=== PATIENT | female | born 1950 | race Caucasian/White ===

== ENCOUNTER 2016-11-29 13:47 | Inpatient (IN) | payer OTHER ==
--- NOTE | ~2016-11-29 | OR ---
Unit #: [id number] #: [id number] Patient: KOLTON ELIZABETH [id number] [address] [address] [id number] I MR#: [id number] NAME: KOLTON ELIZABETH ROOM: 462 Date of Procedure: 11/30/2016 Admission Date: 11/29/2016 Surgeon: Montez Interiano M.D. : 1950 Attending Physician: Chanel Dixon M.D. Primary Care Physician: Mark Flores M.D. OPERATIVE REPORT PRIMARY CARE PHYSICIAN Mark Flores M.D. PREOPERATIVE DIAGNOSIS The patient has presented with acute biliary pancreatitis. PROCEDURES PERFORMED Endoscopic retrograde cholangiopancreatography and biliary stent placement. Endoscopic retrograde cholangiopancreatography and pancreatic stent placement. POSTOPERATIVE DIAGNOSES The patient had papillary stenosis. Access to the bile duct was gained after needle-knife sphincterotomy and the common bile duct was swept with a retrieval balloon multiple times. Other than tight papillary stenosis, no other abnormalities were noted. The CBD was about 8 to 9 mm in size. A 10-Palestinian 7 cm biliary stent and a 5-Palestinian 5 cm pancreatic stents were deployed. RECOMMENDATIONS We will monitor the patient's LFTs and pancreatic enzyme levels over the next 24 hours. She should be able to go home in the next one or two days. SEDATION USED MAC. DESCRIPTION OF PROCEDURE Following detailed explanation of the potential risks and complications of an ERCP, namely perforation, bleeding, complication related to sedation, and pancreatitis, the patient was brought to GI lab and laid in the left semiprone position. Sedation using MAC was given. A preliminary upper GI endoscopy was performed, which was normal. A lateral viewing duodenoscope was then advanced through the oral cavity into the esophagus and advanced into the stomach. Pylorus was intubated in the usual fashion and the scope was advanced into the deep descending duodenum. The patient had a large hiatus hernia making intubation of the pylorus somewhat challenging. The major papilla and ampullary area was visualized en face and guidewire based cannulation was done. After first couple of attempts, only pancreatic duct could be cannulated. The wire in the pancreatic duct was then anchored and guidewire in the pancreatic duct was then anchored and using double wire technique, attempt was made to cannulate the common bile duct without much success. A pancreatic stent was then deployed followed Unit #: [id number] #: [id number] Patient: KOLTON ELIZABETH by needle-knife sphincterotomy. Access to the bile duct was thus gained of needle knife. The patient had significant papillary stenosis as evidenced by the appearances of distal common bile duct and scarring this area. A contrast cholangiogram was obtained that showed a long cystic duct remnant, but the intrahepatic biliary tree was normal. The common bile duct was dilated to about 8 mm. A 9 to 12 mm retrieval balloon was used and the duct was swept multiple times. No stones or debris were found. A 10-Palestinian 7 cm biliary stent was then deployed. Excellent biliary drainage was established. The scope and the accessories were then withdrawn. The patient returned to the recovery area. She tolerated the procedure without any postprocedure complications. Dictated by... William Virgen/yakov TD: 12/01/2016 03:26 JOB #: [id number] CC: Rubin Romeo M.D. . OPERATIVE REPORT Page 1 of 1 X Montez Interiano MD X PROCEDURE OPERATIVE NOTE
--- NOTE | ~2016-11-29 | HP ---
Unit #: [id number] #: [id number] Patient: KOLTON ELIZABETH [id number] [address] [place], [place] [address] [id number] I MR#: [id number] NAME: KOLTON ELIZABETH. ROOM: 53862 Age: 66 Sex: F Admission Date: 11/29/2016 : 1950 Attending Physician: Rubin Romeo M.D. Primary Care Physician: Mark Flores M.D. HISTORY AND PHYSICAL CHIEF COMPLAINT Abdominal pain. HISTORY OF PRESENT ILLNESS Patient is a pleasant 66-year-old female who presented with abdominal pain x1 day. The pain she described was reminiscent of when she had a gallbladder attack many years ago which she had a cholecystectomy for. She denied any fever. She described the abdominal pain as epigastric radiating to her back. She states it was 10 out of 10 and (1) was somewhat colicky. Denied any vomiting but did have some nausea, denied any diarrhea, melena, hematochezia, hemoptysis, or hematemesis, denied any calf pain or tenderness, denied any headaches or blurry vision, and denied any syncopal episodes. She presented to the emergency room for evaluation. In the emergency room, she had a CAT scan of her abdomen and pelvis which indicated acute pancreatitis. PAST MEDICAL HISTORY Pancreatitis in the past. PAST SURGICAL HISTORY 1. Appendectomy. 2. Cholecystectomy. 3. Hysterectomy. 4. Left knee replacement. MEDICATIONS Motrin [id number]. ALLERGIES PENICILLIN. FAMILY HISTORY Negative to the presenting complaints at this point. SOCIAL HISTORY Patient lives by herself. Patient denies any tobacco use, alcohol use, or illicit drug use. FAMILY HISTORY Noncontributory. PHYSICAL EXAMINATION GENERAL: She was comfortable and not in any acute distress. VITAL SIGNS: Blood pressure 113/76, pulse 118, respiratory rate 18, Unit #: [id number] #: [id number] Patient: KOLTON ELIZABETH temperature 98.1, and saturating 95% on room air. HEENT: Pupils were equal and reactive to light and accommodation. NECK: Supple without thyromegaly. No elevated JVD. CHEST: Reduced breath sounds at the lung bases posteriorly. CARDIOVASCULAR: First and second heart sounds only. ABDOMEN: Full. Moved with respirations. Soft. Some tenderness in the epigastric region. No palpable organomegaly that I could appreciate. EXTREMITIES: No calf pain or tenderness. DIAGNOSTIC STUDIES LABORATORY: Chemistries with glucose of 145, BUN and creatinine 24 and 0.8, sodium and potassium 136 and 4.1, chloride 100, bicarb of 24, AST 276, ALT 370, and alkaline phosphatase 132. Amylase 631 and lipase 918 with lactic acid level of 1.8. CBC with WBC of 15.9, hemoglobin and hematocrit 16.9 and 51.1, platelet count of 166,000, and neutrophil count of 88.1. Urinalysis was essentially positive for leukocyte esterase, nitrite positive, protein 2+, and glucose 100. IMAGING: CT scan of the abdomen and pelvis which showed peripancreatic stranding with some degree of ascites. ASSESSMENT AND PLAN 1. Acute pancreatitis. Keep patient nothing by mouth. Put her on IV fluids of D5 half normal saline plus 20 mEq of potassium chloride per liter at 150 mL/hour. Give her IV morphine 2 mg IV q.4 hours as needed and [place] 5/325 at 1 by mouth q.4 hours as needed for pain. Put her on Invanz 1 gram IV daily. Will consult Dr. Montez Interiano of Gastroenterology. Will also put her on Protonix 40 mg IV daily for gastrointestinal prophylaxis. Abdominal pain is secondary to acute pancreatitis. Will treat with narcotic medications. For her nausea, will put her on some Zofran 4 mg q.4 as needed. 2. Urinary tract infection. She is nitrite positive and leukocyte esterase positive. Will culture this urine. Patient is already on Invanz 1 gram q.24. Would deescalate antibiotics should the white count trend downward and should the culture and sensitivities return for the urinary tract infection. 3. Leukocytosis probably multifactorial at this time probably secondary to #1 (2) and #2. May be the urinary tract infection. 4. Deep venous thrombosis prophylaxis. Will put her on sequential compression devices and Lovenox 40 mg subcutaneous daily. 5. Hypokalemia. Will replete this per protocol and check a magnesium level in the morning. 6. Goals of care. She is a Full Code. 1. Dictated by William Hackett/jeannine TD: 11/29/2016 22:08 JOB #: [id number] Unit #: [id number] #: [id number] Patient: KOLTON ELIZABETH HISTORY AND PHYSICAL Page 1 of 1 X Rubin Romeo MD HISTORY AND PHYSICAL
--- NOTE | ~2016-11-29 | CR72 ---
[facility] A Service of [facility] & [facility] RADIOLOGY TEXT RESULTS PATIENT: KOLTON ELIZABETH LOCATION: [facility] 462-01 : [birth year] UNIT #: [id number] AGE: [address]: Chanel Dixon MD SEX: F ORDER DR: [id number] [facility] [address] [place], [place] [address] [id number] MR#: [id number] Acc #: [id number] NAME: KOLTON ELIZABETH : 1950 SEX: F STUDY DATE/TIME: 12/01/2016 08:58 UNIT: [facility] ROOM: [facility] STUDY DESCRIPTION: CR Chest Single View Portable Attending Physician: Chanel Dixon M.D. Ordering Physician: Chanel Dixon M.D. Primary Care Physician: Mark Flores M.D. MEDICAL IMAGING REPORT This report is preliminary unless electronic signature is present EXAM Chest portable, 12/01/2016 08:58 hours HISTORY Shortness of air today with nausea and vomiting since 11/29/2016. COMPARISON 06/04/2009 FINDINGS Portable upright chest demonstrates extremely low lung volumes. There is marked elevation of the left hemidiaphragm, increased from the prior study. Heart size is within normal limits. There is mediastinal widening with previous film demonstrating at least a tortuous aorta. Increase in caliber of the aorta particularly the ascending aorta cannot be excluded given this technique. Consider a follow-up upright two view chest film to reassess the mediastinal contours and the aorta. IMPRESSION Very low lung volume film with stable heart size. There is marked elevation of the left hemidiaphragm, increased from 06/04/2009 which could be due to technique. There is mediastinal widening increased over the prior study. This could be due to technical factors however increasing caliber of the aorta or an anterior mediastinal mass cannot be excluded given this technique. Suggest a follow-up two view upright chest film when possible. If this cannot be performed, consider chest CT with contrast if possible. STAT * RESULT [facility]. [facility] A Service of [facility] & [facility] RADIOLOGY TEXT RESULTS PATIENT: KOLTON ELIZABETH LOCATION: [facility] 462-01 : [birth year] UNIT #: [id number] AGE: [address]: Chanel Dixon MD SEX: F ORDER DR: Dictated by... Kasey Whitehead M.D. THIS IS AN ELECTRONICALLY VERIFIED REPORT Kasey Whitehead M.D. at 12/01/2016 1:00 PM Katharina TD: 12/01/2016 09:34 JOB #: [id number] MEDICAL IMAGING REPORT Page 1 of 1 COPY
--- NOTE | ~2016-11-29 | CR84 ---
[facility] A Service of [facility] RADIOLOGY TEXT RESULTS PATIENT: KOLTON ELIZABETH LOCATION: [place] [address] : [birth year] UNIT #: [id number] AGE: [address]: Chanel Dixon MD SEX: F ORDER DR: [id number] [place] [address] [facility]. [place], [place] [address] [id number] I MR#: [id number] Acc #: [id number] NAME: KOLTON ELIZABETH : 1950 SEX: F STUDY DATE/TIME: 11/30/2016 13:36 UNIT: [facility] ROOM: [facility] STUDY DESCRIPTION: CR ERCP Biliary and Pancr SI Attending Physician: Chanel Dixon M.D. Ordering Physician: Montez Interiano M.D. Primary Care Physician: Mark Flores M.D. MEDICAL IMAGING REPORT This report is preliminary unless electronic signature is present EXAM ERCP HISTORY Abdomen pain and vomiting for 2 days. Pancreatitis. Fluoroscopy time 2 minutes FINDINGS 6 fluoroscopic intraoperative spot films were obtained during the ERCP procedure performed by the attending endoscopist. Injection of the common bile duct demonstrates mild narrowing at the level of the ampulla, over a short segment, but no additional extrahepatic biliary ductal stricture. There is only partial opacification of the central intrahepatic ducts. Contrast refluxed into the cystic duct. Cholecystectomy. No pancreatic duct contrast injection. No intraductal filling defect is identified. Biliary stent was placed at the conclusion of the procedure. IMPRESSION 1. Extrahepatic biliary stent was placed after injection of the common bile duct demonstrating mild short-segment narrowing of the distal common bile duct just above the ampulla. No intraductal filling defects are identified. 2. Cholecystectomy. Dictated by... Hever Craig M.D. THIS IS AN ELECTRONICALLY VERIFIED REPORT Hever Craig M.D. at 11/30/2016 10:58 PM DFL/psc [facility] A Service [facility] RADIOLOGY TEXT RESULTS PATIENT: KOLTON ELIZABETH LOCATION: [facility] 462-01 : [birth year] UNIT #: [id number] AGE: [address]: Chanel Dixon MD SEX: F ORDER DR: TD: 11/30/2016 20:55 JOB #: [id number] MEDICAL IMAGING REPORT Page 1 of 1 COPY
--- NOTE | ~2016-11-29 | CT2 ---
[facility] A Service of [facility] & [facility] RADIOLOGY TEXT RESULTS PATIENT: KOLTON ELIZABETH [facility] [address] : [birth year] UNIT #: [id number] AGE: [address]: Rubin Romeo MD SEX: F ORDER DR: [id number] [facility] [address] [place], [place] [address] [id number] I MR#: [id number] #: [id number] NAME: KOLTON ELIZABETH. : 1950 SEX: F STUDY DATE/TIME: 11/29/2016 16:49 UNIT: [facility] ROOM: 44638 STUDY DESCRIPTION: CT Abd and Pelv W Cont Attending Physician: Rubin Romeo M.D. Ordering Physician: Elaine Garsia M.D. Primary Care Physician: Mark Flores M.D. MEDICAL IMAGING REPORT This report is preliminary unless electronic signature is present EXAM CT abdomen and pelvis with IV contrast HISTORY Mid abdomen pain and vomiting today. FINDINGS CT abdomen and pelvis was performed with IV contrast. This CT exam was performed with one or more of the following radiation dose reduction techniques: Automatic exposure control, adjustment of mA and/or kV according to patient size, and iterative reconstruction. CT ABDOMEN: Moderately severe chronic elevation of the left hemidiaphragm is stable compared to chest x-ray 06/04/2009. Mild to moderate atelectasis in both lung bases. Small hiatal hernia. Small amount of ascites primarily about the liver. Mild peripancreatic stranding, greater about the pancreatic head and uncinate process, could be due to acute pancreatitis and correlation to patient history and laboratory findings is recommended. No pancreatic ductal dilatation. Cholecystectomy. No hepatic mass. Small amount of fluid in the paracolic gutters bilaterally. No bowel dilatation. Normal caliber abdominal aorta. CT PELVIS: Small to moderate amount of free fluid in the central pelvis. Hysterectomy. No bowel dilatation. Urinary bladder is normal. IMPRESSION 1. Mild peripancreatic stranding. Although nonspecific, this could be due to acute pancreatitis and correlation to patient history and symptoms and laboratory findings is recommended. 2. There is a small amount of ascites in the abdomen and small to moderate amount of ascites in the central pelvis. 3. No bowel dilatation. No urinary obstruction. 4. Fatty infiltration of the liver. [facility] A Service of [facility] & [facility] RADIOLOGY TEXT RESULTS PATIENT: KOLTON ELIZABETH LOCATION: [facility] [address]69 : [birth year] UNIT #: [id number] AGE: [address]: Rubin Romeo MD SEX: F ORDER DR: 5. Moderately severe chronic elevation of the left hemidiaphragm. 6. Cholecystectomy and hysterectomy. Dictated by... Hever Craig M.D. THIS IS AN ELECTRONICALLY VERIFIED REPORT Hever Craig M.D. at 11/29/2016 10:52 PM DFL/alexia TD: 11/29/2016 22:20 JOB #: [id number] MEDICAL IMAGING REPORT Page 1 of 1 COPY
--- NOTE | ~2016-11-29 | EKG ---
PATIENT: KOLTON ELIZABETH UNIT #: [id number] Ventricular Rate: 119 BPM Atrial Rate: 119 BPM P-R Interval: 148 ms QRS Duration: 70 ms Q-T Interval: 318 ms QTC Calculation(Bezet): 447 ms P [place]: 30 degrees Calculated R [place]: -5 degrees Calculated T [place]: 43 degrees Diagnosis Line: Sinus tachycardia Diagnosis Line: Cannot rule out Inferior infarct , age Diagnosis Line: undetermined Diagnosis Line: Borderline Diagnosis Line: No previous ECGs available Diagnosis Line: Confirmed by MATT CRUZ MD ([id number]) on 11/29/2016 Diagnosis Line: 11:39:15 PM INTERPRETING MD: ANTHONY BELTRAN
--- NOTE | ~2016-11-29 | EKG ---
PATIENT: KOLTON ELIZABETH UNIT #: [id number] Ventricular Rate: 119 BPM Atrial Rate: 119 BPM P-R Interval: 124 ms QRS Duration: 78 ms Q-T Interval: 310 ms QTC Calculation(Bezet): 436 ms P [place]: 48 degrees Calculated R [place]: 0 degrees Calculated T [place]: 48 degrees Diagnosis Line: Sinus tachycardia Diagnosis Line: Possible Inferior infarct (cited on or before Diagnosis Line: 29-NOV-2016) Diagnosis Line: Abnormal ECG Diagnosis Line: When compared with ECG of 29-NOV-2016 13:28, Diagnosis Line: No significant change was found Diagnosis Line: Confirmed by MATT CRUZ MD ([id number]) on 12/02/2016 Diagnosis Line: 7:00:36 PM INTERPRETING MD: ANTHONY BELTRAN
--- NOTE | ~2016-11-29 | DS ---
Unit #: [id number] #: [id number] Patient: KOLTON ELIZABETH [id number] [address] [place], [place] [address] [id number] I MR#: [id number] NAME: KOLTON ELIZABETH. ROOM: 461 Age: 66 Sex: F Admission Date: 11/29/2016 : 1950 Discharge Date: 12/04/2016 Attending Physician: Claudia Webster M.D. Primary Care Physician: Mark Flores M.D. DISCHARGE SUMMARY ADDENDUM Please see Dr. Dixon's Transfer of Care Summary dictated on 12/03/2016. Essentially, over the past 24 hours, the patient was reassessed for O2 evaluation. She does require home O2 prior to discharge secondary to O2 saturations in the mid 80s. Also noted was her repeat laboratory studies from this morning did show a white count of 15.4 and likely elevated secondary to IV Solu-Medrol. At this point in time, she is anxious to go home. She appears stable to be discharged home. We will discharge her home with home health and with the understanding she should follow up with her PCP in approximately seven to ten days for reassessment of O2. She will be given prescriptions for both Symbicort, Ventolin, Levaquin as well as prednisone. At some point in time after her respiratory status is more stable, she should be assessed as an outpatient for evaluation of possible underlying asthma. FINAL DISCHARGE DIAGNOSES 1. Acute hypoxic respiratory failure. 2. Acute reactive airway disease, asthma versus chronic obstructive pulmonary disease. 3. Bandemia on admission. 4. Biliary pancreatitis on admission, now resolved. 5. Hypertension. 6. Obesity. 7. Tachycardia on admission, likely secondary to acute dehydration. 8. Obesity. FINAL DISCHARGE MEDICATIONS 1. Norvasc 10 m p.o. daily. 2. Symbicort 160/4.5, two puffs b.i.d. 3. Ventolin HFA, one to two puffs q.6 p.r.n. 4. Prednisone 40 mg p.o. daily x5 days. 5. Levaquin 750 mg p.o. daily x10 days. DISCHARGE CONDITION Stable. DISCHARGE DISPOSITION Home with home health. Unit #: [id number] #: [id number] Patient: KOLTON ELIZABETH Kale by... William Parrish/kirby TD: 12/05/2016 09:11 JOB #: [id number] DISCHARGE SUMMARY Page 1 of 1 X Claudia Webster MD X DISCHARGE SUMMARY
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
--- NOTE | ~2016-11-29 | CO ---
Unit #: [id number] #: [id number] Patient: KOLTON ELIZABETH [id number] [address] [place], [place] [address] [id number] I MR#: [id number] NAME: KOLTON ELIZABETH. ROOM: 462 Age: 66 Sex: F Admission Date: 11/29/2016 : 1950 Attending Physician: Rubin Romeo M.D. Primary Care Physician: Mark Flores M.D. Consultation Date: 11/30/2016 CONSULTATION REPORT REASON FOR CONSULTATION Acute biliary pancreatitis. HISTORY OF PRESENT ILLNESS The patient is a very pleasant 66-year-old white female who was admitted with a two-day history of upper abdominal pain radiating to the back. The pain is felt in the lower sternal and midepigastric area. She says it is exactly like the pain she had when she had gallbladder surgery many years ago. There is no history of fever, chills, or rigors. The pain was quite severe. There was no vomiting, but she was quite nauseated. No history of overt GI bleed in the form of hematemesis, melena, or hematochezia. Patient had a CT scan of the abdomen that shows mild acute pancreatitis. PAST MEDICAL HISTORY History of pancreatitis in the past. PAST SURGICAL HISTORY 1. Cholecystectomy. 2. Hysterectomy. 3. Appendectomy. 4. Left knee replacement. HOME MEDICATIONS Motrin [id number]. ALLERGIES PENICILLIN. FAMILY HISTORY None of colon or pancreatic cancer or liver disease. SOCIAL HISTORY Patient lives by herself. She does not smoke or drink alcohol. REVIEW OF SYSTEMS A detailed review of organ systems does not reveal any recent weight loss, no history of cough, expectoration, or hemoptysis, no history of dysuria, hematuria, or pyuria, no history of focal seizures or extremity weakness, no history of skin rash, aphthous ulcers in the mouth, or reactive arthritis, and no history of overt GI bleed. PHYSICAL EXAMINATION GENERAL: She is alert, oriented, and appears comfortable. VITAL SIGNS: Stable with temperature of 97.8, pulse 120 per minute and Unit #: [id number] #: [id number] Patient: HEINEY,KOLTON J regular, respiratory rate is 18, and blood pressure is 134/100. She weighs 222 pounds. HEENT: No pallor, icterus, lymphadenopathy, or peripheral edema. CARDIOVASCULAR: Normal heart sounds. No murmurs. CHEST: Auscultation over the lungs reveals normal breath sounds and good air entry. ABDOMEN: Soft and obese. There is a little bit of tenderness (1) in the midepigastric area. Liver and spleen are not palpable, and bowel sounds are normal. DIAGNOSTIC STUDIES LABORATORY: White count of 15.9, hemoglobin 16, and platelet count is 166,000. BUN and creatinine 24 and 0.8, total bilirubin 6, AST and ALT 276 and 370, and alkaline phosphatase of 132. Amylase and lipase are 600 and 900, respectively. IMAGING: CT scan of the abdomen shows mild pancreatitis at the head of the pancreas. No biliary ductal dilation is elicited on the CT scan. CLINICAL IMPRESSION Overall history, clinical examination, and lab evaluation is consistent with acute biliary pancreatitis most likely from common bile duct stones. Despite the negative imaging, an ERCP is warranted to document clearance of the common bile duct. This will be done later today. The pros and cons of the procedure and the potential risks and complications were discussed with the patient, and she was reassured. Thank you very much for asking me to see this pleasant woman. I appreciate the consult. Dictated by... William Virgen/jeannine TD: 11/30/2016 14:35 JOB #: [id number] CONSULTATION REPORT Page 1 of 1 X Montez Interiano MD CONSULTATION REPORT
--- NOTE | ~2016-11-29 | NM69 ---
[facility] A Service of [facility] RADIOLOGY TEXT RESULTS PATIENT: KOLTON ELIZABETH LOCATION: [facility] : 54 UNIT #: [id number] AGE: [address]: Chanel Dixon MD SEX: F ORDER DR: [id number] [facility] [address]. [place], [place] [address] [id number] I MR#: [id number] Acc #: [id number] NAME: KOLTON ELIZABETH : 1950 SEX: F STUDY DATE/TIME: 12/01/2016 14:23 UNIT: [facility] ROOM: [facility] STUDY DESCRIPTION: NM Pulm Vent and Perf Attending Physician: Chanel Dixon M.D. Ordering Physician: Chanel Dixon M.D. Primary Care Physician: Mark Flores M.D. MEDICAL IMAGING REPORT This report is preliminary unless electronic signature is present EXAM V/Q scan, 12/01. HISTORY Shortness of air started 4 days ago. Elevated D-dimer. TECHNIQUE Ventilation images were obtained after the administration of 35.7 mCi of technetium-99m DTPA aerosol. Corresponding perfusion images were obtained after the IV administration of 5.5 mCi of technetium-99m MAA. COMPARISON STUDIES Comparison made with chest radiograph obtained the same day. FINDINGS Chest x-ray demonstrates cm and a markedly elevated left hemidiaphragm. Perfusion tracer deposition in the lungs is fairly homogeneous. Ventilation deposition is somewhat heterogeneous. However, no V/Q mismatches are identified, and there are no segmental perfusion defects. Study is low probability for pulmonary embolism. IMPRESSION Low-probability for pulmonary embolism. Dictated by... Isidoro Lerma Jr., M.D. THIS IS AN ELECTRONICALLY VERIFIED REPORT Isidoro Lerma Jr., M.D. at 12/01/2016 3:57 PM [facility] A Service [facility] RADIOLOGY TEXT RESULTS PATIENT: KOLTON ELIZABETH LOCATION: [facility] : [birth year] UNIT #: [id number] AGE: [address]: Chanel Dixon MD SEX: F ORDER DR: MIESHA/miko TD: 12/01/2016 15:41 JOB #: [id number] MEDICAL IMAGING REPORT Page 1 of 1 COPY
[2016-11-29 13:48] LABS: URINE SOURCE CLEAN CATCH
[2016-11-29 13:52] LABS: URINE APPEARANCE CLOUDY; URINE BLOOD NEG (NEG); URINE COLOR DK YELLOW; URINE GLUCOSE 100 MG/DL (NEG); URINE KETONE NEG (NEG); URINE LEUKOCYTE ESTERASE 1+ (NEG); URINE NITRATE POS (NEG); URINE PROTEIN 2+ (NEG); URINE SPECIFIC GRAVITY 1.031 (1.003-1.035)
[2016-11-29 13:54] LABS: CULTURE INDICATED? YES; URINE BACTERIA AUWI 3+ (NEGATIVE); URINE SQUAMOUS EPITHELIAL CELL MOD /[HPF]
[2016-11-29 13:56] LABS: BASOPHIL# 0.1 X10e3 (0-0.3); BASOPHIL% 0.3 % (0-2.5); HEMATOCRIT 51.1 % (35.0-45.0); HEMOGLOBIN 16.9 gm/dL (12.0-16.0); LYMPHOCYTE# 0.7 X10e3 (1.0-3.5); LYMPHOCYTE% 4.3 % (17.0-45.0); MEAN CELL VOLUME 89.5 FL (83-96); MEAN CORPUSCULAR HEMOGLOBIN 29.7 PG (28-34); MEAN CORPUSCULAR HGB CONC 33.2 g/dL (30-36); MEAN PLATELET VOLUME 9.9 FL (6.5-11.5); MONOCYTE# 1.2 X10e3 (0-1.0); MONOCYTE% 7.3 % (3.0-12.0); NEUTROPHIL% 88.1 % (40-75); PLATELET COUNT 166 X10e3 (140-420); RED BLOOD COUNT 5.71 X10e (3.90-5.30); RED CELL DISTRIBUTION WIDTH 15.1 % (11.0-15.5); WHITE BLOOD COUNT 15.9 X10e3 (4.0-10.5)
[2016-11-29 13:58] LABS: DIFF IND YES
[2016-11-29 14:23] LABS: POC - CKMB <1.0 ng/mL (0.0-7.9); POC - TROPONIN <0.05 ng/mL (<=0.05)
[2016-11-29 14:24] LABS: PLATELET ESTIMATE NORMAL (NORMAL)
[2016-11-29 14:25] LABS: ALBUMIN SERUM 3.7 g/dL (3.5-5.0); BILIRUBIN, DIRECT 3.6 mg/dL (0.0-0.2); BILIRUBIN,INDIRECT 2.6 mg/dL (0.0-0.9); BILIRUBIN,TOTAL 6.2 mg/dL (0.2-2.0); CALCIUM SERUM 7.7 mg/dL (8.4-10.2); CREATININE SERUM 0.8 mg/dL (0.6-1.4); POTASSIUM 4.1 mmol/L (3.5-5.1); PROTEIN TOTAL SERUM 7.1 g/dL (6.0-8.3)
[2016-11-29] MEDS ORDERED: NO MEDICATIONS (19:01)
[2016-11-30] MEDS ORDERED: MOTRIN600 M2 (00:48)
[2016-11-30 11:12] LABS: ALBUMIN SERUM 3.1 g/dL (3.5-5.0); BUN/CREATININE RATIO 23.33; CALCIUM SERUM 6.4 mg/dL (8.4-10.2); CREATININE SERUM 1.2 mg/dL (0.6-1.4); GLOM FILT RATE Estimated 47.7 mL/min (>60); POTASSIUM 4.5 mmol/L (3.5-5.1); PROTEIN TOTAL SERUM 5.8 g/dL (6.0-8.3)
[2016-11-30 11:13] LABS: BILIRUBIN,TOTAL 1.7 mg/dL (0.2-2.0)
[2016-11-30 11:14] LABS: BASOPHIL% 0.2 % (0-2.5); DIFF IND NO; HEMATOCRIT 45.2 % (35.0-45.0); HEMOGLOBIN 14.6 gm/dL (12.0-16.0); LYMPHOCYTE# 0.7 X10e3 (1.0-3.5); LYMPHOCYTE% 3.6 % (17.0-45.0); MEAN CELL VOLUME 92.2 FL (83-96); MEAN CORPUSCULAR HEMOGLOBIN 29.7 PG (28-34); MEAN CORPUSCULAR HGB CONC 32.3 g/dL (30-36); MEAN PLATELET VOLUME 9.8 FL (6.5-11.5); MONOCYTE# 1.3 X10e3 (0-1.0); MONOCYTE% 6.8 % (3.0-12.0); NEUTROPHIL# 17.7 X10e3 (1.5-7.1); NEUTROPHIL% 89.4 % (40-75); PLATELET COUNT 130 X10e3 (140-420); RED BLOOD COUNT 4.91 X10e (3.90-5.30); RED CELL DISTRIBUTION WIDTH 15.4 % (11.0-15.5); WHITE BLOOD COUNT 19.8 X10e3 (4.0-10.5)
[2016-11-30 11:24] LABS: MAGNESIUM 1.7 mg/dL (1.6-3.0); PHOSPHOROUS 2.7 mg/dL (2.5-4.6)
[2016-12-01 02:58] LABS: BASOPHIL% 0.2 % (0-2.5); HEMATOCRIT 40.4 % (35.0-45.0); HEMOGLOBIN 13.1 gm/dL (12.0-16.0); LYMPHOCYTE# 0.9 X10e3 (1.0-3.5); LYMPHOCYTE% 5.2 % (17.0-45.0); MEAN CELL VOLUME 90.8 FL (83-96); MEAN CORPUSCULAR HEMOGLOBIN 29.4 PG (28-34); MEAN CORPUSCULAR HGB CONC 32.3 g/dL (30-36); MEAN PLATELET VOLUME 9.6 FL (6.5-11.5); MONOCYTE# 1.3 X10e3 (0-1.0); MONOCYTE% 7.5 % (3.0-12.0); NEUTROPHIL# 14.7 X10e3 (1.5-7.1); NEUTROPHIL% 87.1 % (40-75); PLATELET COUNT 131 X10e3 (140-420); RED BLOOD COUNT 4.45 X10e (3.90-5.30); RED CELL DISTRIBUTION WIDTH 15.2 % (11.0-15.5); WHITE BLOOD COUNT 16.9 X10e3 (4.0-10.5)
[2016-12-01 02:59] LABS: DIFF IND NO
[2016-12-01 03:23] LABS: ALBUMIN SERUM 3.1 g/dL (3.5-5.0); BILIRUBIN,TOTAL 1.4 mg/dL (0.2-2.0); CALCIUM SERUM 6.6 mg/dL (8.4-10.2); GLOM FILT RATE Estimated 25.7 mL/min (>60); POTASSIUM 4.6 mmol/L (3.5-5.1); PROTEIN TOTAL SERUM 6.2 g/dL (6.0-8.3)
[2016-12-01 09:07] LABS: ARTERIAL BLD GAS O2 SATURATION 88.8 % (90.0-100.0); ARTERIAL BLOOD GAS CARBOXY HB 1.5 %sat (0.0-9.0); ARTERIAL BLOOD GAS HCO3 23.7 mmol/L; ARTERIAL BLOOD GAS MET HB 0.7 %sat (0.0-2.0); ARTERIAL BLOOD GAS pH 7.292 (7.350-7.450)
[2016-12-01 09:08] LABS: ARTERIAL BLOOD GAS ALLEN TEST NORMAL; ARTERIAL BLOOD GAS PO2 63.8 mmHg (80.0-100); ARTERIAL DRAW? YES
[2016-12-01 09:09] LABS: ARTERIAL BLOOD GAS ART SITE RIGHT RADIAL; ARTERIAL BLOOD GAS DELIVERY NASAL CANNULA; ARTERIAL BLOOD GAS LITER FLOW 3.5
[2016-12-01 20:51] LABS: URINE APPEARANCE CLOUDY; URINE BILIRUBIN NEG (NEG); URINE BLOOD TRACE (NEG); URINE COLOR DK YELLOW; URINE GLUCOSE NEG (NEG); URINE KETONE NEG (NEG); URINE LEUKOCYTE ESTERASE NEG (NEG); URINE NITRATE NEG (NEG); URINE PH 5.5 (5-8); URINE PROTEIN 1+ (NEG); URINE SPECIFIC GRAVITY 1.023 (1.003-1.035)
[2016-12-01 20:53] LABS: URINE BACTERIA AUWI NEG (NEGATIVE); URINE SQUAMOUS EPITHELIAL CELL OCC /[HPF]
[2016-12-01 21:01] LABS: CULTURE INDICATED? NO
[2016-12-02 09:09] LABS: BASOPHIL% 0.1 % (0-2.5); DIFF IND NO; HEMATOCRIT 38.2 % (35.0-45.0); HEMOGLOBIN 12.1 gm/dL (12.0-16.0); LYMPHOCYTE# 0.7 X10e3 (1.0-3.5); LYMPHOCYTE% 5.7 % (17.0-45.0); MEAN CORPUSCULAR HEMOGLOBIN 29.4 PG (28-34); MEAN CORPUSCULAR HGB CONC 31.6 g/dL (30-36); MEAN PLATELET VOLUME 10.3 FL (6.5-11.5); MONOCYTE# 0.7 X10e3 (0-1.0); MONOCYTE% 5.7 % (3.0-12.0); NEUTROPHIL# 10.5 X10e3 (1.5-7.1); NEUTROPHIL% 88.5 % (40-75); PLATELET COUNT 129 X10e3 (140-420); RED BLOOD COUNT 4.11 X10e (3.90-5.30); RED CELL DISTRIBUTION WIDTH 15.4 % (11.0-15.5); WHITE BLOOD COUNT 11.9 X10e3 (4.0-10.5)
[2016-12-02 09:45] LABS: ALBUMIN SERUM 2.8 g/dL (3.5-5.0); CALCIUM SERUM 7.2 mg/dL (8.4-10.2); CREATININE SERUM 0.8 mg/dL (0.6-1.4); POTASSIUM 4.6 mmol/L (3.5-5.1); PROTEIN TOTAL SERUM 6.3 g/dL (6.0-8.3)
[2016-12-03 03:30] LABS: BASOPHIL% 0.3 % (0-2.5); EOSINOPHIL% 0.3 % (0.0-7.0); HEMATOCRIT 35.3 % (35.0-45.0); HEMOGLOBIN 11.4 gm/dL (12.0-16.0); LYMPHOCYTE# 0.5 X10e3 (1.0-3.5); LYMPHOCYTE% 4.4 % (17.0-45.0); MEAN CELL VOLUME 91.9 FL (83-96); MEAN CORPUSCULAR HEMOGLOBIN 29.6 PG (28-34); MEAN CORPUSCULAR HGB CONC 32.2 g/dL (30-36); MEAN PLATELET VOLUME 9.5 FL (6.5-11.5); MONOCYTE# 0.8 X10e3 (0-1.0); MONOCYTE% 6.5 % (3.0-12.0); NEUTROPHIL# 10.6 X10e3 (1.5-7.1); NEUTROPHIL% 88.5 % (40-75); PLATELET COUNT 164 X10e3 (140-420); RED BLOOD COUNT 3.84 X10e (3.90-5.30); RED CELL DISTRIBUTION WIDTH 15.5 % (11.0-15.5); WHITE BLOOD COUNT 11.9 X10e3 (4.0-10.5)
[2016-12-03 03:31] LABS: DIFF IND YES
[2016-12-03 03:45] LABS: ALBUMIN SERUM 2.7 g/dL (3.5-5.0); BUN/CREATININE RATIO 36.25; CALCIUM SERUM 7.7 mg/dL (8.4-10.2); CREATININE SERUM 0.8 mg/dL (0.6-1.4); POTASSIUM 4.1 mmol/L (3.5-5.1); PROTEIN TOTAL SERUM 6.2 g/dL (6.0-8.3)
[2016-12-03 04:09] LABS: PLATELET ESTIMATE NORMAL (NORMAL)
[2016-12-03 15:56] LABS: URINE APPEARANCE CLEAR; URINE BILIRUBIN NEG (NEG); URINE BLOOD NEG (NEG); URINE COLOR DK YELLOW; URINE GLUCOSE NEG (NEG); URINE KETONE NEG (NEG); URINE LEUKOCYTE ESTERASE NEG (NEG); URINE NITRATE NEG (NEG); URINE PH 5.5 (5-8); URINE PROTEIN TRACE (NEG); URINE SPECIFIC GRAVITY 1.027 (1.003-1.035)
[2016-12-04 02:38] LABS: BASOPHIL% 0.2 % (0-2.5); DIFF IND NO; EOSINOPHIL# 0.1 X10e3 (0-0.7); EOSINOPHIL% 0.5 % (0.0-7.0); HEMATOCRIT 35.4 % (35.0-45.0); HEMOGLOBIN 11.9 gm/dL (12.0-16.0); LYMPHOCYTE# 0.6 X10e3 (1.0-3.5); LYMPHOCYTE% 3.9 % (17.0-45.0); MEAN CELL VOLUME 88.5 FL (83-96); MEAN CORPUSCULAR HEMOGLOBIN 29.6 PG (28-34); MEAN CORPUSCULAR HGB CONC 33.5 g/dL (30-36); MEAN PLATELET VOLUME 9.2 FL (6.5-11.5); MONOCYTE# 0.2 X10e3 (0-1.0); NEUTROPHIL# 14.6 X10e3 (1.5-7.1); NEUTROPHIL% 94.4 % (40-75); PLATELET COUNT 119 X10e3 (140-420); RED CELL DISTRIBUTION WIDTH 14.7 % (11.0-15.5); WHITE BLOOD COUNT 15.4 X10e3 (4.0-10.5)
[2016-12-04] MEDS ORDERED: PREDNISONE PO (10:26)
[2016-12-04] MEDS ORDERED: ALBUTEROL17 GM INH (10:27)
[2016-12-04] MEDS ORDERED: SYMBICORT INH (10:32)
[2016-12-04] MEDS ORDERED: LEVAQUIN750 MG PO (10:33)
[2016-12-04] MEDS ORDERED: NORVASC10 MG PO (10:34)
[2016-12-04] MEDS ORDERED: FERROUS SULFAT324 MG PO (11:07)
[2017-02-01] MEDS ORDERED: NO MEDICATIONS (14:47)
== END 2016-12-04 12:30 | disposition home health service (06) | DRG 438 ==
LOC: CED 13:47 → CEDOF 20:13 → C4C 11-30 00:29
PROVIDERS: Emergency Medicine; Internal Medicine; Internal Medicine Gastroenterology; Internal Medicine Infectious Disease
PROC: 0F798DZ Dilation of Common Bile Duct with Intraluminal Device, Via Natural or Artificial Opening Endoscopic (ICD-10-PCS; principal; 2016-11-30 14:27)
PROC: 0F7D8DZ Dilation of Pancreatic Duct with Intraluminal Device, Via Natural or Artificial Opening Endoscopic (ICD-10-PCS; 2016-11-30 14:27)
DX: K85.10 Biliary acute pancreatitis without necrosis or infection (principal); J96.01 Acute respiratory failure with hypoxia; Q79.1 Other congenital malformations of diaphragm; N17.9 Acute kidney failure, unspecified; E44.0 Moderate protein-calorie malnutrition; E87.2 Acidosis; J44.1 Chronic obstructive pulmonary disease with (acute) exacerbation; Z90.49 Acquired absence of other specified parts of digestive tract; Z90.710 Acquired absence of both cervix and uterus; Z96.652 Presence of left artificial knee joint; Z88.0 Allergy status to penicillin; E87.6 Hypokalemia; D72.829 Elevated white blood cell count, unspecified; E86.0 Dehydration; R74.0 Nonspecific elevation of levels of transaminase and lactic acid dehydrogenase [LDH]; E66.9 Obesity, unspecified; R00.0 Tachycardia, unspecified; D69.6 Thrombocytopenia, unspecified; K59.00 Constipation, unspecified; D72.825 Bandemia; K76.0 Fatty (change of) liver, not elsewhere classified; Z68.36 Body mass index [BMI] 36.0-36.9, adult; J45.909 Unspecified asthma, uncomplicated
CPT/HCPCS: 36415; 36600; 71010; 74177; 74330; 76001; 78582; 80048; 80053; 80076; 81003; 82150; 82553; 82803; 83605; 83690; 83735; 83880; 84100; 84300; 84478; 84484; 85025; 85379; 87040; 87086; 89190; 93005; 94640; 94664; 94760; 96361; 96374; 96375; 97162; 97165; 97535; 99285; A9540; A9567; C9113; G0480; J0330; J1100; J1170; J1335; J1610; J1650; J2270; J2405; J2920; J2930; J3010; J3490; Q9967

== ENCOUNTER → 2017-01-03 | Outpatient (CLI) | payer OTHER ==
[~2017-01-03] MED LIST: ALBUTEROL17 GM INH; FERROUS SULFAT324 MG PO; LEVAQUIN750 MG PO; MOTRIN600 M2; NO MEDICATIONS; NORVASC10 MG PO; PREDNISONE PO; SYMBICORT INH
--- NOTE | ~2017-01-03 | CT57 ---
[facility] A Service of [facility] RADIOLOGY TEXT RESULTS PATIENT: KOLTON ELIZABETH [facility] : 54 UNIT #: [id number] AGE: [address]: Aracelis Curry APRN SEX: F ORDER DR: [id number] [facility] [address] [place], [place] [address] [id number] O MR#: [id number] Acc #: [id number] NAME: KOLTON ELIZABETH : 1950 SEX: F STUDY DATE/TIME: 01/03/2017 15:22 UNIT: [facility] ROOM: STUDY DESCRIPTION: CT Chest Wo Cont Attending Physician: Aracelis Curry A.P.R.N. Referring Physician: Aracelis Curry A.P.R.N. Ordering Physician: Aracelis Curry A.P.R.N. Primary Care Physician: Mark Flores M.D. MEDICAL IMAGING REPORT This report is preliminary unless electronic signature is present EXAM CT chest INDICATIONS Abnormal chest radiograph. Left basilar atelectasis and/or infiltrate. Currently asymptomatic. TECHNIQUE CT of the thorax without contrast. Coronal and sagittal reconstructions were obtained. This CT exam was performed with one or more of the following radiation dose reduction techniques: automatic control, adjustment of mA and/or kV according to patient size, and iterative reconstruction. COMPARISON CT abdomen and pelvis dated 11/29/2016. FINDINGS There is an elevated left hemidiaphragm. The elevated diaphragm results in atelectasis of approximately 50% of the left hemithorax. The abdominal contents result in shift of the mediastinum towards the right. The central airways are patent. No enlarged mediastinal or hilar lymph nodes. There is a superior mediastinal lymph node adjacent to the trachea which is prominent, however measures less than a centimeter in short axis. The aortic arch is normal in caliber. No pericardial or pleural effusion. There is mild circumferential thickening of the distal thoracic esophagus. This could represent a focal esophagitis. Correlation with clinical symptoms is recommended. Patient has a common bile duct stent which is new from the prior study. There is extensive cyst stippled nodularity in and around the pancreas extending into the left pericolic gutter and around the hilum and the STS. [facility] A Service of [facility] RADIOLOGY TEXT RESULTS PATIENT: KOLTON ELIZABETH LOCATION: [facility] : 54 UNIT #: [id number] AGE: [address]: Aracelis Curry APRN SEX: F ORDER DR: spleen. This also extends into the root of the mesentery. The patient has had a history of pancreatitis and this is probably an unusual manifestation of pancreatitis. This should be closely followed given the nodularity to differentiate from peritoneal nodules/carcinomatosis. No acute osseous abnormalities. IMPRESSION 1. Elevated left hemidiaphragm results in atelectasis in the lower one-half of the left lung. There is also shift of the mediastinum into the right hemithorax. 2. Mild circumferential thickening of the distal thoracic esophagus. This can be seen in the setting of esophagitis. Please correlate with clinical history. 3. Development of diffuse nodular densities predominately centered around the pancreas extending around the splenic hilum, left pericolic gutter, and root of the mesentery. This probably represents a atypical manifestation of the patient's known pancreatitis, however should be closely followed to differentiate from peritoneal nodules/carcinomatosis. Patient's prior CT did have evidence of pancreatitis and there has been placement of a common bile duct stent supporting acute pancreatitis over malignancy. Dictated by... Sree Copeland M.D. THIS IS AN ELECTRONICALLY VERIFIED REPORT Sree Copeland M.D. at 01/04/2017 11:15 AM KENDRA/bernarda TD: 01/04/2017 06:56 JOB #: [id number] MEDICAL IMAGING REPORT Page 1 of 1 COPY
[2017-01-03 15:21] LABS: POC - CREATININE 0.84 mg/dL (0.44-1.03); POC - GFR >60.0 mL/min (>60)
== END | disposition home or self-care (01) ==
LOC: CCAT 12:48
PROVIDERS: Nurse Practitioner
DX: R93.8 Abnormal findings on diagnostic imaging of other specified body structures (principal); J98.11 Atelectasis; J98.6 Disorders of diaphragm; K22.8 Other specified diseases of esophagus; K86.89 Other specified diseases of pancreas
CPT/HCPCS: 71250; 82565; 93306

== ENCOUNTER → 2017-02-01 | Day surgery (SDC) | payer OTHER ==
--- NOTE | ~2017-02-01 | OR ---
Unit #: [id number] #: [id number] Patient: KOLTON ELIZABETH [id number] [address] [place], [place] [address] [id number] O MR#: [id number] NAME: KOLTON ELIZABETH ROOM: Date of Procedure: 02/01/2017 Admission Date: 02/01/2017 Surgeon: Montez Interiano M.D. : 1950 Attending Physician: Montez Interiano M.D. Primary Care Physician: Mark Flores M.D. OPERATIVE REPORT PREOPERATIVE DIAGNOSES The patient had indwelling pancreatic and biliary stents. She has come for elective removal of the biliary stent. PROCEDURES PERFORMED Endoscopic retrograde cholangiopancreatography and biliary stent removal. POSTOPERATIVE DIAGNOSES Normal cholangiogram was demonstrated after removal of the biliary stent. No stones or debris were present in the duct. The duct was swept with a 9 to 12 mm retrieval balloon multiple times. The biliary stent was removed and a normal occlusion cholangiogram was demonstrated. RECOMMENDATIONS The patient will be followed up in the office in 3 months' time. A preliminary LFTs, CBC, and amylase and lipase were obtained before the patient being discharged home. SEDATION USED General anesthesia. DESCRIPTION OF PROCEDURE Following detailed explanation of potential risks and complications of an ERCP, namely perforation, bleeding, and complication related to sedation, and pancreatitis, the patient was brought to GI lab and laid in the left semiprone position. Sedation using MAC was given. A lateral-viewing duodenoscope was advanced through the oral cavity into the esophagus and advanced into the stomach. Pylorus was intubated in the usual fashion. The scope was advanced in deep descending duodenum. Upon shortening the scope, major papilla and ampullary area was visualized en face. The indwelling biliary stent was then seen in place in en face position in the sphincterotomy site. The biliary stent was thus removed using polypectomy snare and delivered outside. The patient was then reintubated and through the previous sphincterotomy site, a guidewire was placed. A sphincterotome was advanced over the guidewire and cholangiogram was obtained. Due to the size of the sphincterotomy, most of the dye leaked back into the duodenum. Therefore, a 9 to 12 mm retrieval balloon was used and occlusion cholangiogram was obtained sweeping the duct twice, each time no debris or stones were delivered. The normal occlusion cholangiogram was demonstrated. The scope and the accessories were then withdrawn and the patient returned to the recovery area. She tolerated the procedure without any postprocedure complications. Unit #: [id number] #: [id number] Patient: KOLTON ELIZABETH Dictated by... William Virgen/yakov TD: 02/01/2017 17:09 JOB #: [id number] OPERATIVE REPORT Page 1 of 1 X Montez Interiano MD X PROCEDURE OPERATIVE NOTE
--- NOTE | ~2017-02-01 | CR84 ---
[facility] A Service of [facility] RADIOLOGY TEXT RESULTS PATIENT: KOLTON ELIZABETH LOCATION: [facility] : 54 UNIT #: [id number] AGE: [address]: Montez Interiano MD SEX: F ORDER DR: [id number] [facility] [address] [place], [place] [address] [id number] O MR#: [id number] Acc #: [id number] NAME: KOLTON ELIZABETH. : 1950 SEX: F STUDY DATE/TIME: 02/01/2017 15:11 UNIT: [facility] ROOM: STUDY DESCRIPTION: CR ERCP Biliary and Pancr SI Attending Physician: Montez Interiano M.D. Ordering Physician: Montez Interiano M.D. Primary Care Physician: Mark Flores M.D. MEDICAL IMAGING REPORT This report is preliminary unless electronic signature is present EXAM ERCP (interpretation only) HISTORY SUPPLIED Common duct stent removal. FINDINGS This examination was performed by Dr. Interiano. A total of 3 spot radiographs were obtained and the total fluoroscopy time for the procedure was listed at 1 minute 5 seconds. They show injection of the common duct and reportedly there is no dilatation and free flow into the duodenum. A balloon catheter is in place on at least 1 of the radiographs. CONCLUSION The common duct stent removal by Dr. Interiano. Please see his notes for details of the procedure. Dictated by... Ángel Lerma M.D. THIS IS AN ELECTRONICALLY VERIFIED REPORT Ángel Lerma M.D. at 02/05/2017 9:18 AM JAIME/rubia TD: 02/02/2017 12:08 JOB #: [id number] MEDICAL IMAGING REPORT Page 1 of 1 COPY
[2017-02-01 16:52] LABS: EOSINOPHIL# 0.3 X10e3 (0-0.7); EOSINOPHIL% 6.5 % (0.0-7.0); HEMATOCRIT 38.4 % (35.0-45.0); HEMOGLOBIN 12.4 gm/dL (12.0-16.0); LYMPHOCYTE# 1.7 X10e3 (1.0-3.5); LYMPHOCYTE% 40.5 % (17.0-45.0); MEAN CELL VOLUME 88.2 FL (83-96); MEAN CORPUSCULAR HEMOGLOBIN 28.4 PG (28-34); MEAN CORPUSCULAR HGB CONC 32.2 g/dL (30-36); MEAN PLATELET VOLUME 8.8 FL (6.5-11.5); MONOCYTE# 0.4 X10e3 (0-1.0); MONOCYTE% 9.8 % (3.0-12.0); NEUTROPHIL# 1.8 X10e3 (1.5-7.1); NEUTROPHIL% 42.2 % (40-75); PLATELET COUNT 137 X10e3 (140-420); RED BLOOD COUNT 4.36 X10e (3.90-5.30); RED CELL DISTRIBUTION WIDTH 15.6 % (11.0-15.5); WHITE BLOOD COUNT 4.2 X10e3 (4.0-10.5)
[2017-02-01 16:53] LABS: DIFF IND NO
[2017-02-01 17:17] LABS: ALBUMIN SERUM 3.4 g/dL (3.5-5.0); BILIRUBIN,TOTAL 1.2 mg/dL (0.2-2.0); BUN/CREATININE RATIO 22.85; CALCIUM SERUM 9.2 mg/dL (8.4-10.2); CREATININE SERUM 0.7 mg/dL (0.6-1.4); GLOM FILT RATE Estimated 91.6 mL/min (>60); POTASSIUM 3.8 mmol/L (3.5-5.1); PROTEIN TOTAL SERUM 6.3 g/dL (6.0-8.3)
== END | disposition home or self-care (01) ==
LOC: COPS 14:20
PROVIDERS: Internal Medicine Gastroenterology
DX: Z46.59 Encounter for fitting and adjustment of other gastrointestinal appliance and device (principal); K21.9 Gastro-esophageal reflux disease without esophagitis; M06.9 Rheumatoid arthritis, unspecified; E66.01 Morbid (severe) obesity due to excess calories; Z68.42 Body mass index [BMI] 45.0-49.9, adult; Z88.0 Allergy status to penicillin; Z90.49 Acquired absence of other specified parts of digestive tract; Z90.710 Acquired absence of both cervix and uterus; Z96.652 Presence of left artificial knee joint; Z98.890 Other specified postprocedural states
CPT/HCPCS: 74330; 80053; 82150; 83690; 85025; J0330; J2250; J3010